=== PATIENT | female | born 1990 | race Two or more races ===

== ENCOUNTER 2018-01-12 15:21 | Outpatient (CLI) | payer BC ==
[2018-01-12 16:54] LABS: BASOPHILS # (AUTO) 0.1 /CMM (0.0-0.2); BASOPHILS % (AUTO) 0.8 % (0.0-2.0); EOSINOPHILS % (AUTO) 3.8 % (0.0-6.0); HEMATOCRIT 42 % (33-45); HEMOGLOBIN 14.3 g/dL (11.5-14.8); LYMPHOCYTES # (AUTO) 3.5 /CMM (0.8-4.8); LYMPHOCYTES % (AUTO) 45.3 % (20.0-44.0); MEAN CORPUSCULAR HEMOGLOBIN 31 PG (26.0-33.0); MEAN CORPUSCULAR HGB CONC 34 g/dl (31.0-36.0); MEAN CORPUSCULAR VOLUME 91 fL (82-100); MONOCYTES # (AUTO) 0.4 /CMM (0.1-1.30); MONOCYTES % (AUTO) 5.6 % (2.0-12.0); NEUTROPHILS # (AUTO) 3.5 /CMM (1.8-8.9); NEUTROPHILS % (AUTO) 44.5 % (43.0-81.0); PLATELET COUNT (AUTO) 298 /CMM (150-450); RDW COEFFICIENT OF VARIATION 12.5 (11.5-15.0); RED BLOOD CELL COUNT(AUTO) 4.57 MIL/uL (4.0-5.2); WHITE BLOOD COUNT (AUTO) 7.8 K/uL (4.3-11.0)
[2018-01-12 16:56] LABS: APPEARANCE,URINE CLEAR (CLEAR); BILIRUBIN,URINE NEGATIVE (NEGATIVE); BLOOD, URINE TRACE-INTA Ery/uL (NEGATIVE); COLOR,URINE YELLOW (YELLOW); KETONES,URINE NEGATIVE (NEGATIVE); LEUKOCYTE ESTERASE ,URINE NEGATIVE (NEGATIVE); NITRITE, URINE NEGATIVE (NEGATIVE); PROTEIN,URINE NEGATIVE (NEGATIVE); UGLUCOSE NEGATIVE (NEGATIVE); UROBILINOGEN,URINE 0.2 EU/dL (0.2)
[2018-01-12 17:08] LABS: BACTERIA,URINE Few /HPF (None Seen); RBC,URINE 0-2 /HPF (0-2); SQUAMOUS EPITHELIAL CELL,UR Moderate /HPF (None Seen)
[2018-01-12 17:22] LABS: ALBUMIN 4.4 g/dL (3.4-5.0); BILIRUBIN,TOTAL 0.5 mg/dL (0.2-1.0); CALCIUM, SERUM 8.3 mg/dL (8.5-10.1); CREATININE 0.8 mg/dL (0.6-1.3); POTASSIUM 3.6 mmol/L (3.5-5.1); TOTAL PROTEIN, SERUM 7.9 g/dL (6.4-8.2)
[2018-01-12 17:26] LABS: FREE T4 (FREE THYROXINE) 0.81 ng/dL (0.76-1.46); THYROID STIMULATING HORMONE 4.479 uIU/mL (0.358-3.74)
[2018-01-13 08:13] LABS: *TESTOSTERONE, SERUM 67 ng/dL (8-48); FOLLICLE STIMULATION HORMONE 2.1 mIU/mL (.); LUTEINIZING HORMONE 5.7 mIU/mL (.); PROLACTIN 14.3 ng/mL (4.8-23.3)
[2018-01-14 17:09] LABS: *TESTOSTERONE, FREE (DIRECT) 5.3 pg/mL (0.0-4.2)
== END 2018-01-12 23:59 | disposition home or self-care (01) ==
LOC: LAB 15:21
PROVIDERS: ATTEND Legal Medicine
DX: Z00.01 Encounter for general adult medical examination with abnormal findings (principal); N91.2 Amenorrhea, unspecified
CPT/HCPCS: 36415; 80053-TC; 80061-TC; 81000-TC; 82306; 82670; 82728-TC; 82746; 83001; 83002; 83540-TC; 84146; 84402; 84403; 84439-TC; 84443-TC; 85025-TC

== ENCOUNTER 2018-01-26 08:58 | Outpatient (CLI) | payer BC | END 2018-01-26 23:59 | disposition home or self-care (01) | LOC: US 08:58 | PROVIDERS: ATTEND Legal Medicine | DX: K76.0 Fatty (change of) liver, not elsewhere classified (principal); K75.9 Inflammatory liver disease, unspecified | CPT/HCPCS: 76700-TC ==

== ENCOUNTER 2019-04-01 15:35 | Outpatient (CLI) | payer BC ==
[2019-04-01 16:25] LABS: BASOPHILS # (AUTO) 0.1 /CMM (0.0-0.2); BASOPHILS % (AUTO) 0.8 % (0.0-2.0); EOSINOPHILS % (AUTO) 1.5 % (0.0-6.0); HEMATOCRIT 42 % (33-45); HEMOGLOBIN 14.4 g/dL (11.5-14.8); LYMPHOCYTES # (AUTO) 1.4 /CMM (0.8-4.8); MEAN CORPUSCULAR HGB CONC 35 g/dl (31.0-36.0); MEAN CORPUSCULAR VOLUME 90 fL (82-100); MONOCYTES # (AUTO) 0.6 /CMM (0.1-1.30); MONOCYTES % (AUTO) 8.1 % (2.0-12.0); NEUTROPHILS # (AUTO) 5.6 /CMM (1.8-8.9); NEUTROPHILS % (AUTO) 71.6 % (43.0-81.0); PLATELET COUNT (AUTO) 386 /CMM (150-450); RED BLOOD CELL COUNT(AUTO) 4.63 MIL/uL (4.0-5.2); WHITE BLOOD COUNT (AUTO) 7.8 K/uL (4.3-11.0)
[2019-04-01 16:36] LABS: ALBUMIN 3.7 g/dL (3.4-5.0); BILIRUBIN,TOTAL 0.4 mg/dL (0.2-1.0); CALCIUM, SERUM 9.2 mg/dL (8.5-10.1); CREATININE 0.9 mg/dL (0.6-1.3)
[2019-04-01 16:40] LABS: APPEARANCE,URINE CLEAR (CLEAR); BILIRUBIN,URINE NEGATIVE (NEGATIVE); BLOOD, URINE TRACE-INTA Ery/uL (NEGATIVE); COLOR,URINE YELLOW (YELLOW); KETONES,URINE NEGATIVE (NEGATIVE); LEUKOCYTE ESTERASE ,URINE 1+ (NEGATIVE); NITRITE, URINE NEGATIVE (NEGATIVE); PROTEIN,URINE NEGATIVE (NEGATIVE); UGLUCOSE NEGATIVE (NEGATIVE); UROBILINOGEN,URINE 0.2 EU/dL (0.2)
[2019-04-01 16:51] LABS: FREE T4 (FREE THYROXINE) 1.08 ng/dL (0.76-1.46); THYROID STIMULATING HORMONE 2.424 uIU/mL (0.358-3.74)
[2019-04-01 17:30] LABS: RBC,URINE 0-2 /HPF (0-2)
[2019-04-01 17:31] LABS: BACTERIA,URINE None seen /HPF (None Seen); SQUAMOUS EPITHELIAL CELL,UR Moderate /HPF (None Seen)
[2019-04-01 17:32] LABS: MUCUS,URINE Rare /LPF (None Seen)
== END 2019-04-01 23:59 | disposition home or self-care (01) ==
LOC: LAB 15:35
PROVIDERS: ATTEND Legal Medicine
DX: R10.9 Unspecified abdominal pain (principal); D64.9 Anemia, unspecified; E78.00 Pure hypercholesterolemia, unspecified
CPT/HCPCS: 36415; 80053-TC; 80061-TC; 81000-TC; 82150-TC; 82306; 82728-TC; 82977-TC; 83540-TC; 83690-TC; 84439-TC; 84443-TC; 85025-TC; 86592; 86694; 86695; 86696; 87086-TC; 87491; 87591; 87806

== ENCOUNTER 2019-04-02 08:56 | Outpatient (CLI) | payer BC | END 2019-04-02 23:59 | disposition home or self-care (01) | LOC: US 08:56 | PROVIDERS: ATTEND Legal Medicine | DX: R10.9 Unspecified abdominal pain (principal) | CPT/HCPCS: 76700-TC ==

== ENCOUNTER 2019-12-17 04:55 | Outpatient (CLI) | payer OTHER | END 2019-12-17 23:59 | disposition home or self-care (01) | LOC: LAB 04:55 | DX: Z03.818 Encounter for observation for suspected exposure to other biological agents ruled out (principal) | CPT/HCPCS: U0003-CS ==

== ENCOUNTER 2020-01-13 20:55 | Emergency (ER) | payer OTHER ==
[~2020-01-13] VITALS: Ht 167.6 cm; Wt 62.6 kg
[2020-01-13 20:59] VITALS: BP 128/77
--- NOTE | 2020-01-13 21:36 | NUR ---
COVID TEST SENT TO LAB
== END 2020-01-13 21:37 | disposition home or self-care (01) ==
LOC: ER 20:55
DX: Z03.818 Encounter for observation for suspected exposure to other biological agents ruled out (principal)
CPT/HCPCS: 99283; C9803; U0003

== ENCOUNTER 2020-01-21 03:12 | Emergency (ER) | payer OTHER ==
[~2020-01-21] VITALS: Ht 170.2 cm; Wt 65.8 kg
[2020-01-21 03:13] VITALS: BP 124/68
--- NOTE | 2020-01-21 03:29 | NUR ---
COVID SWAB COLLECTED AND SENT TO LAB
== END 2020-01-21 03:31 | disposition home or self-care (01) ==
LOC: ER 03:12
DX: Z11.59 Encounter for screening for other viral diseases (principal)
CPT/HCPCS: 99283; C9803; U0003

== ENCOUNTER 2020-02-05 04:04 | Emergency (ER) | payer OTHER ==
[~2020-02-05] VITALS: Ht 167.6 cm; Wt 62.6 kg
[2020-02-05 04:11] VITALS: BP 123/76
== END 2020-02-05 04:18 | disposition home or self-care (01) ==
LOC: ER 04:08
DX: Z03.818 Encounter for observation for suspected exposure to other biological agents ruled out (principal)
CPT/HCPCS: 99283; C9803; U0003

== ENCOUNTER 2020-02-11 03:58 | Emergency (ER) | payer OTHER ==
[~2020-02-11] VITALS: Ht 167.6 cm; Wt 62.6 kg
[2020-02-11 04:00] VITALS: BP 127/62
--- NOTE | 2020-02-11 04:54 | NUR ---
COVID SWAB SENT TO LAB
== END 2020-02-11 04:54 | disposition home or self-care (01) ==
LOC: ER 03:59
DX: Z03.818 Encounter for observation for suspected exposure to other biological agents ruled out (principal)
CPT/HCPCS: 99283; C9803; U0003

== ENCOUNTER 2020-02-19 03:26 | Emergency (ER) | payer OTHER ==
[~2020-02-19] VITALS: Ht 167.6 cm; Wt 62.6 kg
[2020-02-19 03:29] VITALS: BP 125/62
--- NOTE | 2020-02-19 03:49 | NUR ---
COVID SWAB COLLECTED. SENT TO LAB
== END 2020-02-19 03:50 | disposition home or self-care (01) ==
LOC: ER 03:32
DX: Z11.59 Encounter for screening for other viral diseases (principal)
CPT/HCPCS: 99283; C9803; U0003

== ENCOUNTER 2020-02-25 04:22 | Emergency (ER) | payer OTHER ==
--- NOTE | 2020-02-25 04:34 | NUR ---
COVID SWAB COLLECTED AND SENT TO LAB
== END 2020-02-25 04:35 | disposition home or self-care (01) ==
LOC: ER 04:22
DX: Z03.818 Encounter for observation for suspected exposure to other biological agents ruled out (principal)
CPT/HCPCS: 99283; C9803; U0003

== ENCOUNTER 2020-03-09 02:01 | Emergency (ER) | payer OTHER ==
[~2020-03-09] VITALS: Ht 167.6 cm; Wt 62.6 kg
[2020-03-09 02:01] VITALS: BP 129/75
== END 2020-03-09 02:15 | disposition home or self-care (01) ==
LOC: ER 02:01
DX: Z20.828 Contact with and (suspected) exposure to other viral communicable diseases (principal)
CPT/HCPCS: 99283; C9803; U0003

== ENCOUNTER 2020-03-18 02:35 | Emergency (ER) | payer OTHER ==
[~2020-03-18] VITALS: Ht 167.6 cm; Wt 62.6 kg
[2020-03-18 02:36] VITALS: BP 118/79
--- NOTE | 2020-03-18 02:54 | NUR ---
COVID SWAB DONE AND SENT TO LAB
== END 2020-03-18 02:54 | disposition home or self-care (01) ==
LOC: ER 02:36
DX: Z20.828 Contact with and (suspected) exposure to other viral communicable diseases (principal)
CPT/HCPCS: 99283; C9803; U0003

== ENCOUNTER 2020-03-24 04:12 | Emergency (ER) | payer OTHER ==
[~2020-03-24] VITALS: Ht 167.6 cm; Wt 62.6 kg
[2020-03-24 04:13] VITALS: BP 118/76
== END 2020-03-24 04:28 | disposition home or self-care (01) ==
LOC: ER 04:12
DX: Z20.828 Contact with and (suspected) exposure to other viral communicable diseases (principal)
CPT/HCPCS: 99283; C9803; U0003

== ENCOUNTER 2020-04-07 03:11 | Emergency (ER) | payer OTHER ==
[~2020-04-07] VITALS: Ht 167.6 cm; Wt 65.8 kg
[2020-04-07 03:11] VITALS: BP 124/73
== END 2020-04-07 03:21 | disposition home or self-care (01) ==
LOC: ER 03:13
DX: Z20.828 Contact with and (suspected) exposure to other viral communicable diseases (principal)
CPT/HCPCS: 99283; C9803; U0003

== ENCOUNTER 2020-04-07 09:42 | Outpatient (CLI) | payer BC | END 2020-04-07 23:59 | disposition home or self-care (01) | LOC: LAB 09:42 | PROVIDERS: ATTEND Legal Medicine | DX: N39.0 Urinary tract infection, site not specified (principal); Z11.3 Encounter for screening for infections with a predominantly sexual mode of transmission | CPT/HCPCS: 86592; 86694; 86695; 86696; 87086-TC; 87186-TC; 87491; 87591; 87806 ==

== ENCOUNTER 2020-04-13 03:57 | Emergency (ER) | payer BC, OTHER ==
[~2020-04-13] VITALS: Ht 167.6 cm; Wt 65.8 kg
[2020-04-13 04:00] VITALS: BP 119/65
== END 2020-04-13 04:26 | disposition home or self-care (01) ==
LOC: ER 04:00
DX: Z20.828 Contact with and (suspected) exposure to other viral communicable diseases (principal)
CPT/HCPCS: C9803-CS; U0003-CS

== ENCOUNTER 2020-04-20 01:41 | Emergency (ER) | payer OTHER ==
[~2020-04-20] VITALS: Ht 167.6 cm; Wt 65.8 kg
[2020-04-20 01:43] VITALS: BP 131/87
== END 2020-04-20 01:58 | disposition home or self-care (01) ==
LOC: ER 01:54
DX: Z20.828 Contact with and (suspected) exposure to other viral communicable diseases (principal)
CPT/HCPCS: 99283; C9803; U0003

== ENCOUNTER 2020-05-04 04:37 | Emergency (ER) | payer OTHER ==
[~2020-05-04] VITALS: Ht 167.6 cm; Wt 65.8 kg
[2020-05-04 04:39] VITALS: BP 126/63
== END 2020-05-04 04:53 | disposition home or self-care (01) ==
LOC: ER 04:37
DX: Z20.828 Contact with and (suspected) exposure to other viral communicable diseases (principal)
CPT/HCPCS: 99283; C9803; U0003

== ENCOUNTER 2020-05-11 04:31 | Emergency (ER) | payer OTHER ==
[~2020-05-11] VITALS: Ht 167.6 cm; Wt 65.8 kg
[2020-05-11 04:36] VITALS: BP 124/65
== END 2020-05-11 04:41 | disposition home or self-care (01) ==
LOC: ER 04:34
DX: Z20.828 Contact with and (suspected) exposure to other viral communicable diseases (principal)
CPT/HCPCS: 99283; C9803; U0003

== ENCOUNTER 2020-05-18 05:19 | Emergency (ER) | payer OTHER ==
[~2020-05-18] VITALS: Ht 167.6 cm; Wt 65.8 kg
[2020-05-18 05:21] VITALS: BP 125/77
== END 2020-05-18 05:42 | disposition home or self-care (01) ==
LOC: ER 05:22
DX: Z20.828 Contact with and (suspected) exposure to other viral communicable diseases (principal)
CPT/HCPCS: 99283; C9803; U0003

== ENCOUNTER 2020-05-25 04:21 | Emergency (ER) | payer OTHER ==
[~2020-05-25] VITALS: Ht 167.6 cm; Wt 62.6 kg
[2020-05-25 04:25] VITALS: BP 124/62
== END 2020-05-25 04:35 | disposition home or self-care (01) ==
LOC: ER 04:31
DX: Z20.828 Contact with and (suspected) exposure to other viral communicable diseases (principal)
CPT/HCPCS: 99283; U0003; C9803

== ENCOUNTER 2020-06-01 04:24 | Emergency (ER) | payer OTHER ==
[~2020-06-01] VITALS: Ht 167.6 cm; Wt 62.6 kg
[2020-06-01 04:24] VITALS: BP 124/72
== END 2020-06-01 04:49 | disposition home or self-care (01) ==
LOC: ER 04:24
DX: Z20.828 Contact with and (suspected) exposure to other viral communicable diseases (principal)
CPT/HCPCS: 99283; C9803; U0003

== ENCOUNTER 2020-06-10 04:28 | Emergency (ER) | payer OTHER ==
[~2020-06-10] VITALS: Ht 167.6 cm; Wt 62.6 kg
[2020-06-10 04:30] VITALS: BP 128/64
--- NOTE | 2020-06-10 04:50 | NUR ---
COVID SWAB SENT TO LAB
== END 2020-06-10 04:50 | disposition home or self-care (01) ==
LOC: ER 04:28
DX: Z20.828 Contact with and (suspected) exposure to other viral communicable diseases (principal)
CPT/HCPCS: 99283; C9803; U0003

== ENCOUNTER 2020-06-14 01:54 | Emergency (ER) | payer OTHER ==
[~2020-06-14] VITALS: Ht 167.6 cm; Wt 62.6 kg
[2020-06-14 02:06] VITALS: BP 128/76
== END 2020-06-14 03:04 | disposition home or self-care (01) ==
LOC: ER 01:58
DX: Z20.828 Contact with and (suspected) exposure to other viral communicable diseases (principal)
CPT/HCPCS: 99283; C9803; U0003

== ENCOUNTER 2020-06-22 04:27 | Emergency (ER) | payer OTHER ==
[~2020-06-22] VITALS: Ht 167.6 cm; Wt 62.6 kg
[2020-06-22 04:28] VITALS: BP 127/75
== END 2020-06-22 04:48 | disposition home or self-care (01) ==
LOC: ER 04:27
DX: Z20.828 Contact with and (suspected) exposure to other viral communicable diseases (principal)
CPT/HCPCS: 99283; C9803; U0003

== ENCOUNTER 2020-06-26 03:16 | Emergency (ER) | payer OTHER ==
[~2020-06-26] VITALS: Ht 167.6 cm; Wt 62.6 kg
[2020-06-26 03:16] VITALS: BP 122/75
--- NOTE | 2020-06-26 03:29 | NUR ---
covid swab collected. sent to lab
== END 2020-06-26 03:30 | disposition home or self-care (01) ==
LOC: ER 03:16
DX: Z20.828 Contact with and (suspected) exposure to other viral communicable diseases (principal)
CPT/HCPCS: 99283; C9803; U0003

== ENCOUNTER 2020-06-30 03:38 | Emergency (ER) | payer OTHER ==
[~2020-06-30] VITALS: Ht 167.6 cm; Wt 62.6 kg
[2020-06-30 03:39] VITALS: BP 132/64
== END 2020-06-30 03:55 | disposition home or self-care (01) ==
LOC: ER 03:38
DX: Z20.828 Contact with and (suspected) exposure to other viral communicable diseases (principal)
CPT/HCPCS: 99283; C9803; U0003

== ENCOUNTER 2020-07-06 03:51 | Emergency (ER) | payer OTHER ==
[~2020-07-06] VITALS: Ht 167.6 cm; Wt 62.6 kg
[2020-07-06 03:54] VITALS: BP 124/61
== END 2020-07-06 04:16 | disposition home or self-care (01) ==
LOC: ER 03:51
DX: Z20.828 Contact with and (suspected) exposure to other viral communicable diseases (principal)
CPT/HCPCS: 99283; C9803; U0003

== ENCOUNTER 2020-07-10 04:46 | Emergency (ER) | payer OTHER ==
[~2020-07-10] VITALS: Ht 167.6 cm; Wt 62.6 kg
[2020-07-10 04:48] VITALS: BP 132/64
== END 2020-07-10 05:06 | disposition home or self-care (01) ==
LOC: ER 04:50
DX: Z20.828 Contact with and (suspected) exposure to other viral communicable diseases (principal)
CPT/HCPCS: 99283; C9803; U0003

== ENCOUNTER 2020-07-13 03:57 | Emergency (ER) | payer OTHER ==
[~2020-07-13] VITALS: Ht 167.6 cm; Wt 62.6 kg
[2020-07-13 04:02] VITALS: BP 137/84
== END 2020-07-13 04:35 | disposition home or self-care (01) ==
LOC: ER 04:02
DX: Z20.828 Contact with and (suspected) exposure to other viral communicable diseases (principal)
CPT/HCPCS: 87426; 99283; C9803; U0003

== ENCOUNTER 2020-07-17 11:09 | Emergency (ER) | payer OTHER ==
[~2020-07-17] VITALS: Ht 167.6 cm; Wt 62.6 kg
[2020-07-17 11:20] VITALS: BP 128/80
--- NOTE | 2020-07-17 11:47 | NUR ---
covid 19 swab collected and sent to lab
--- NOTE | 2020-07-17 11:48 | NUR ---
Patient discharged to home in stable condition. Written and verbal after care instructions given. Patient verbalizes understanding of instruction.
== END 2020-07-17 11:48 | disposition home or self-care (01) ==
LOC: ER 11:11
DX: Z20.828 Contact with and (suspected) exposure to other viral communicable diseases (principal)
CPT/HCPCS: 99283; C9803; U0003

== ENCOUNTER 2020-07-22 03:21 | Emergency (ER) | payer OTHER ==
[~2020-07-22] VITALS: Ht 167.6 cm; Wt 62.6 kg
[2020-07-22 03:22] VITALS: BP 125/61
== END 2020-07-22 03:53 | disposition home or self-care (01) ==
LOC: ER 03:24
DX: Z20.828 Contact with and (suspected) exposure to other viral communicable diseases (principal)
CPT/HCPCS: 99283; C9803; U0003

== ENCOUNTER 2020-07-24 05:33 | Emergency (ER) | payer OTHER ==
[~2020-07-24] VITALS: Ht 167.6 cm; Wt 62.6 kg
[2020-07-24 05:36] VITALS: BP 122/68
--- NOTE | 2020-07-25 23:56 | NUR ---
LAB CALLED REGARDING NEGATIVE COVID RESULT.
== END 2020-07-24 05:48 | disposition home or self-care (01) ==
LOC: ER 05:34
DX: Z20.828 Contact with and (suspected) exposure to other viral communicable diseases (principal)
CPT/HCPCS: 99283; C9803; U0003

== ENCOUNTER 2020-07-28 03:10 | Emergency (ER) | payer OTHER ==
[~2020-07-28] VITALS: Ht 167.6 cm; Wt 64.9 kg
[2020-07-28 03:12] VITALS: BP 121/72
== END 2020-07-28 03:38 | disposition home or self-care (01) ==
LOC: ER 03:11
DX: Z20.822 Contact with and (suspected) exposure to COVID-19 (principal)
CPT/HCPCS: 99283; C9803; U0003

== ENCOUNTER 2020-08-03 02:38 | Emergency (ER) | payer OTHER ==
[~2020-08-03] VITALS: Ht 167.6 cm; Wt 63.5 kg
[2020-08-03 02:39] VITALS: BP 128/68
== END 2020-08-03 03:10 | disposition home or self-care (01) ==
LOC: ER 02:38
DX: Z20.822 Contact with and (suspected) exposure to COVID-19 (principal)
CPT/HCPCS: 99283; C9803; U0003

== ENCOUNTER 2020-08-07 00:56 | Emergency (ER) | payer OTHER ==
[~2020-08-07] VITALS: Ht 170.2 cm; Wt 64.4 kg
[2020-08-07 00:59] VITALS: BP 121/69
== END 2020-08-07 01:31 | disposition home or self-care (01) ==
LOC: ER 01:07
DX: Z20.822 Contact with and (suspected) exposure to COVID-19 (principal)
CPT/HCPCS: 99283; C9803; U0003

== ENCOUNTER 2020-08-11 04:13 | Emergency (ER) | payer OTHER ==
[~2020-08-11] VITALS: Ht 170.2 cm; Wt 63.5 kg
[2020-08-11 04:16] VITALS: BP 122/61
== END 2020-08-11 05:02 | disposition home or self-care (01) ==
LOC: ER 04:16
DX: Z20.822 Contact with and (suspected) exposure to COVID-19 (principal)
CPT/HCPCS: 99283; C9803; U0003

== ENCOUNTER 2020-08-17 04:13 | Emergency (ER) | payer OTHER ==
[~2020-08-17] VITALS: Ht 167.6 cm; Wt 56.7 kg
[2020-08-17 04:17] VITALS: BP 121/61
== END 2020-08-17 04:55 | disposition home or self-care (01) ==
LOC: ER 04:13
DX: Z20.822 Contact with and (suspected) exposure to COVID-19 (principal)
CPT/HCPCS: 99283; C9803; U0003

== ENCOUNTER 2020-08-19 04:36 | Emergency (ER) | payer OTHER ==
[~2020-08-19] VITALS: Ht 167.6 cm; Wt 56.7 kg
[2020-08-19 04:37] VITALS: BP 125/79
== END 2020-08-19 05:43 | disposition home or self-care (01) ==
LOC: ER 04:37
DX: Z20.822 Contact with and (suspected) exposure to COVID-19 (principal)
CPT/HCPCS: 99283; C9803; U0003

== ENCOUNTER 2020-08-21 01:12 | Emergency (ER) | payer OTHER ==
[~2020-08-21] VITALS: Ht 170.2 cm; Wt 75.7 kg
[2020-08-21 01:33] VITALS: BP 124/73
== END 2020-08-21 01:56 | disposition home or self-care (01) ==
LOC: ER 01:15
DX: Z20.822 Contact with and (suspected) exposure to COVID-19 (principal)
CPT/HCPCS: 99283; C9803; U0003

== ENCOUNTER 2020-08-24 02:08 | Emergency (ER) | payer OTHER ==
[~2020-08-24] VITALS: Ht 167.6 cm; Wt 67.1 kg
[2020-08-24 02:13] VITALS: BP 116/74
== END 2020-08-24 02:49 | disposition home or self-care (01) ==
LOC: ER 02:08
DX: Z20.822 Contact with and (suspected) exposure to COVID-19 (principal)
CPT/HCPCS: 99283; C9803; U0003

== ENCOUNTER 2020-08-31 04:20 | Emergency (ER) | payer OTHER ==
[~2020-08-31] VITALS: Ht 167.6 cm; Wt 62.6 kg
[2020-08-31 04:22] VITALS: BP 121/72
== END 2020-08-31 04:52 | disposition home or self-care (01) ==
LOC: ER 04:20
DX: Z20.822 Contact with and (suspected) exposure to COVID-19 (principal)
CPT/HCPCS: 99283; C9803; U0003

== ENCOUNTER 2020-09-03 04:48 | Emergency (ER) | payer OTHER ==
[~2020-09-03] VITALS: Ht 167.6 cm; Wt 62.6 kg
[2020-09-03 04:49] VITALS: BP 142/77
== END 2020-09-03 05:46 | disposition home or self-care (01) ==
LOC: ER 04:57
DX: Z20.822 Contact with and (suspected) exposure to COVID-19 (principal)
CPT/HCPCS: 99283; C9803; U0003

== ENCOUNTER 2020-09-04 01:28 | Emergency (ER) | payer OTHER ==
[~2020-09-04] VITALS: Ht 167.6 cm; Wt 62.6 kg
[2020-09-04 01:32] VITALS: BP 138/79
== END 2020-09-04 03:14 | disposition home or self-care (01) ==
LOC: ER 01:34
DX: Z20.822 Contact with and (suspected) exposure to COVID-19 (principal)
CPT/HCPCS: 99283; C9803; U0003

== ENCOUNTER 2020-09-14 01:26 | Emergency (ER) | payer OTHER ==
[~2020-09-14] VITALS: Ht 167.6 cm; Wt 62.6 kg
[2020-09-14 01:27] VITALS: BP 124/74
== END 2020-09-14 01:45 | disposition home or self-care (01) ==
LOC: ER 01:32
DX: Z20.822 Contact with and (suspected) exposure to COVID-19 (principal)
CPT/HCPCS: 99283; C9803; U0003

== ENCOUNTER 2020-09-21 02:27 | Emergency (ER) | payer OTHER ==
[~2020-09-21] VITALS: Ht 167.6 cm; Wt 62.1 kg
[2020-09-21 02:28] VITALS: BP 126/62
== END 2020-09-21 03:03 | disposition home or self-care (01) ==
LOC: ER 02:27
DX: Z20.822 Contact with and (suspected) exposure to COVID-19 (principal)
CPT/HCPCS: 99283; C9803; U0003

== ENCOUNTER 2020-09-28 02:57 | Emergency (ER) | payer OTHER ==
[~2020-09-28] VITALS: Ht 167.6 cm; Wt 62.1 kg
[2020-09-28 02:59] VITALS: BP 118/68
== END 2020-09-28 03:18 | disposition home or self-care (01) ==
LOC: ER 02:57
DX: Z20.822 Contact with and (suspected) exposure to COVID-19 (principal)
CPT/HCPCS: 99283; C9803; U0003

== ENCOUNTER 2020-10-02 01:07 | Emergency (ER) | payer OTHER ==
[~2020-10-02] VITALS: Ht 168.9 cm; Wt 61.2 kg
[2020-10-02 01:08] VITALS: BP 120/69
== END 2020-10-02 02:17 | disposition home or self-care (01) ==
LOC: ER 01:14
DX: Z20.822 Contact with and (suspected) exposure to COVID-19 (principal)
CPT/HCPCS: 99283; C9803; U0003

== ENCOUNTER 2020-10-12 03:28 | Emergency (ER) | payer OTHER ==
[~2020-10-12] VITALS: Ht 168.9 cm; Wt 61.2 kg
[2020-10-12 03:29] VITALS: BP 123/61
== END 2020-10-12 04:33 | disposition home or self-care (01) ==
LOC: ER 03:28
DX: Z20.822 Contact with and (suspected) exposure to COVID-19 (principal)
CPT/HCPCS: 99283; C9803; U0003

== ENCOUNTER 2020-10-18 23:10 | Emergency (ER) | payer OTHER ==
[~2020-10-18] VITALS: Ht 199.4 cm; Wt 61.2 kg
[2020-10-18 23:11] VITALS: BP 127/84
== END 2020-10-18 23:33 | disposition home or self-care (01) ==
LOC: ER 23:11
DX: Z20.822 Contact with and (suspected) exposure to COVID-19 (principal)
CPT/HCPCS: 99283; C9803; U0003

== ENCOUNTER 2020-10-27 03:01 | Emergency (ER) | payer OTHER ==
[~2020-10-27] VITALS: Ht 167.6 cm; Wt 62.6 kg
[2020-10-27 03:02] VITALS: BP 119/67
== END 2020-10-27 03:14 | disposition home or self-care (01) ==
LOC: ER 03:03
DX: Z20.822 Contact with and (suspected) exposure to COVID-19 (principal)
CPT/HCPCS: 99283; C9803; U0003

== ENCOUNTER 2020-10-30 02:34 | Emergency (ER) | payer OTHER ==
[~2020-10-30] VITALS: Ht 167.6 cm; Wt 61.2 kg
[2020-10-30 02:40] VITALS: BP 124/61
== END 2020-10-30 03:21 | disposition home or self-care (01) ==
LOC: ER 02:41
DX: Z20.822 Contact with and (suspected) exposure to COVID-19 (principal)
CPT/HCPCS: 99283; C9803; U0003

== ENCOUNTER 2020-11-16 03:06 | Emergency (ER) | payer OTHER ==
[~2020-11-16] VITALS: Ht 198.1 cm; Wt 61.2 kg
[2020-11-16 03:07] VITALS: BP 134/78
== END 2020-11-16 03:45 | disposition home or self-care (01) ==
LOC: ER 03:06
DX: Z20.822 Contact with and (suspected) exposure to COVID-19 (principal)
CPT/HCPCS: 99283; C9803; U0003

== ENCOUNTER 2020-11-24 02:51 | Emergency (ER) | payer OTHER ==
[~2020-11-24] VITALS: Ht 167.6 cm; Wt 61.2 kg
[2020-11-24 02:53] VITALS: BP 123/80
== END 2020-11-24 03:37 | disposition home or self-care (01) ==
LOC: ER 02:55
DX: Z20.822 Contact with and (suspected) exposure to COVID-19 (principal)
CPT/HCPCS: 99283; C9803; U0003

== ENCOUNTER 2020-11-26 23:42 | Emergency (ER) | payer OTHER ==
[~2020-11-26] VITALS: Ht 167.6 cm; Wt 61.2 kg
[2020-11-26 23:47] VITALS: BP 128/77
== END 2020-11-27 00:35 | disposition home or self-care (01) ==
LOC: ER 23:46
DX: Z20.822 Contact with and (suspected) exposure to COVID-19 (principal)
CPT/HCPCS: 99283; C9803; U0003

== ENCOUNTER 2020-12-07 04:08 | Emergency (ER) | payer OTHER ==
[~2020-12-07] VITALS: Ht 167.6 cm; Wt 61.2 kg
[2020-12-07 04:09] VITALS: BP 114/65
== END 2020-12-07 04:38 | disposition home or self-care (01) ==
LOC: ER 04:08
DX: Z20.822 Contact with and (suspected) exposure to COVID-19 (principal)
CPT/HCPCS: 99283; C9803; U0003

== ENCOUNTER 2020-12-11 02:44 | Emergency (ER) | payer OTHER ==
[~2020-12-11] VITALS: Ht 167.6 cm; Wt 61.2 kg
[2020-12-11 02:48] VITALS: BP 121/69
== END 2020-12-11 03:47 | disposition home or self-care (01) ==
LOC: ER 02:49
DX: Z20.822 Contact with and (suspected) exposure to COVID-19 (principal)
CPT/HCPCS: 99283; C9803; U0003

== ENCOUNTER 2020-12-21 03:22 | Emergency (ER) | payer OTHER ==
[~2020-12-21] VITALS: Ht 167.6 cm; Wt 61.2 kg
[2020-12-21 03:25] VITALS: BP 128/77
== END 2020-12-21 03:56 | disposition home or self-care (01) ==
LOC: ER 03:30
DX: Z20.822 Contact with and (suspected) exposure to COVID-19 (principal)
CPT/HCPCS: 99283; C9803; U0003

== ENCOUNTER 2020-12-29 03:00 | Emergency (ER) | payer OTHER ==
[~2020-12-29] VITALS: Ht 167.6 cm; Wt 61.2 kg
[2020-12-29 03:01] VITALS: BP 129/64
== END 2020-12-29 03:48 | disposition home or self-care (01) ==
LOC: ER 03:02
DX: Z20.822 Contact with and (suspected) exposure to COVID-19 (principal)
CPT/HCPCS: 99283; C9803; U0003

== ENCOUNTER 2021-01-05 03:08 | Emergency (ER) | payer OTHER ==
[~2021-01-05] VITALS: Ht 167.6 cm; Wt 61.2 kg
[2021-01-05 03:22] VITALS: BP 128/85
== END 2021-01-05 04:20 | disposition home or self-care (01) ==
LOC: ER 03:17
DX: Z20.822 Contact with and (suspected) exposure to COVID-19 (principal)
CPT/HCPCS: 99283; C9803; U0003

== ENCOUNTER 2021-01-11 04:10 | Emergency (ER) | payer OTHER ==
[~2021-01-11] VITALS: Ht 167.6 cm; Wt 61.2 kg
[2021-01-11 04:12] VITALS: BP 115/78
== END 2021-01-11 05:35 | disposition home or self-care (01) ==
LOC: ER 04:10
DX: Z20.822 Contact with and (suspected) exposure to COVID-19 (principal)
CPT/HCPCS: 99283; C9803; U0003

== ENCOUNTER 2021-03-08 22:42 | Emergency (ER) | payer OTHER ==
[~2021-03-08] VITALS: Ht 167.6 cm; Wt 61.2 kg
[2021-03-08 22:42] VITALS: BP 113/68
== END 2021-03-09 00:04 | disposition home or self-care (01) ==
LOC: ER 22:46
DX: Z20.822 Contact with and (suspected) exposure to COVID-19 (principal)
CPT/HCPCS: 99283; C9803; U0003

== ENCOUNTER 2021-07-09 00:39 | Emergency (ER) | payer OTHER ==
[~2021-07-09] VITALS: Ht 167.6 cm; Wt 61.2 kg
[2021-07-09 00:39] VITALS: BP 122/68
== END 2021-07-09 01:33 | disposition home or self-care (01) ==
LOC: ER 00:43
DX: Z20.822 Contact with and (suspected) exposure to COVID-19 (principal)
CPT/HCPCS: 99283; C9803; U0003

== ENCOUNTER 2021-07-26 04:33 | Emergency (ER) | payer OTHER | END 2021-07-26 05:11 | disposition home or self-care (01) | LOC: ER 04:33 | DX: Z20.822 Contact with and (suspected) exposure to COVID-19 (principal) | CPT/HCPCS: C9803; U0003 ==

== ENCOUNTER 2024-07-05 15:21 | Emergency (ER) | payer OTHER, BC ==
[~2024-07-05] VITALS: Ht 167.6 cm; Wt 68.0 kg
[2024-07-05 15:36] VITALS: BP 114/64; TEMP 97.9; O2SAT 99
[2024-07-05] MEDS ORDERED: AZITHROMYCIN 250 MG TABLET ONE (15:39)
[2024-07-05] MEDS ORDERED: AZITHROMYCIN 250 MG TABLET PO ONE (16:00)
== END 2024-07-05 15:41 | disposition home or self-care (01) ==
LOC: ER 15:25
DX: Z20.811 Contact with and (suspected) exposure to meningococcus (principal)

== ENCOUNTER 2025-03-01 15:06 | Outpatient (CLI) | payer BC, OTHER ==
[2025-03-01 16:30] LABS: PLATELET COUNT (AUTO) 279 K/uL (150-450); RED BLOOD CELL COUNT(AUTO) 4.61 MIL/uL (4.0-5.2); RED CELL DISTRIBUTION WIDTH 12.8 % (11.5-15.0); WHITE BLOOD COUNT (AUTO) 6.3 K/uL (4.3-11.0)
[2025-03-01 16:56] LABS: APPEARANCE,URINE CLEAR (CLEAR); BLOOD, URINE 1+ Ery/uL (NEGATIVE); LEUKOCYTE ESTERASE ,URINE NEGATIVE (NEGATIVE); NITRITE, URINE NEGATIVE (NEGATIVE); UGLUCOSE NEGATIVE (NEGATIVE)
[2025-03-01 17:03] LABS: ADD URINE CULTURE NO
[2025-03-01 17:13] LABS: IRON, SERUM 126.0 ug/dl (50-175)
[2025-03-01 17:20] LABS: ASPARTATE AMINOTRANSFERASE 17.0 U/L (15-37); CALCIUM, SERUM 8.7 mg/dL (8.5-10.1); CREATININE 0.8 mg/dL (0.6-1.3); SODIUM SERUM 138.0 mmol/L (136-145); TOTAL PROTEIN, SERUM 8.1 g/dL (6.4-8.2); UREA NITROGEN, BLOOD 14.0 mg/dL (7-18)
[2025-03-01 17:23] LABS: LDL 124.0 mg/dL (0-99)
[2025-03-02 11:07] LABS: *TESTOSTERONE, SERUM 38.0 ng/dL (8-60); ESTRADIOL (*R) 8.9 pg/mL (.); FOLLICLE STIMULATION HORMONE 1.5 mIU/mL (.); LUTEINIZING HORMONE 1.5 mIU/mL (.); PROGESTERONE 0.2 ng/mL (.)
[2025-03-03 01:06] LABS: FOLIC ACID 10.7 ng/mL (>3.0); VIT D, 25-HYDROXY 20.8 ng/mL (30.0-100.0)
[2025-03-04 14:07] LABS: *TESTOSTERONE, FREE (DIRECT) 5.3 pg/mL (0.0-4.2)
== END 2025-03-01 23:59 | disposition home or self-care (01) ==
LOC: LAB 15:06
PROVIDERS: ATTEND Legal Medicine
DX: I10 Essential (primary) hypertension (principal); E11.9 Type 2 diabetes mellitus without complications; E55.9 Vitamin D deficiency, unspecified; R53.1 Weakness; E03.9 Hypothyroidism, unspecified; D64.9 Anemia, unspecified; Z00.00 Encounter for general adult medical examination without abnormal findings; E78.5 Hyperlipidemia, unspecified
CPT/HCPCS: 36415; 80053-TC; 80061-TC; 81001; 82306; 82607-TC; 82670; 83001; 83002; 83540-TC; 84144; 84402; 84403; 84439-TC; 84443-TC; 85025-TC; 87086-TC